=== PATIENT | male | born 1950 | race Caucasian/White ===

== ENCOUNTER 2020-07-08 13:00 | Emergency (ER) | payer MEDICARE ==
[~2020-07-08] VITALS: Ht 185.4 cm; Wt 136.1 kg
[2020-07-08 13:41] VITALS: Ht 185.4 cm; Wt 136.1 kg
== END 2020-07-08 18:45 | disposition expired ==
LOC: ED 13:00 → EDBD 13:00 → ED 18:45
DX: I46.9 Cardiac arrest, cause unspecified (principal)
CPT/HCPCS: J7030